=== PATIENT | female | born 1940 | race Caucasian/White ===

== ENCOUNTER 2019-03-14 16:17 | Outpatient (REF) | payer OTHER, SELFPAY ==
--- NOTE | 2019-03-14 13:55 | SKI_PTH ---
PATIENT: Nikki Church LOC: [facility] U#:[id number] AGE/SX: 78/F ROOM: RE03/14/[address]: Fredrick Rae DO : 1940 BED: DIS: 03/14/2019 SPEC #: [id number] RECD: 03/14/19 18:13 STATUS: MEGHNA REQ #: [id number] GERRI: 03/14/19 13:[address]: Fredrick Rae DEPT: Surgical Specimen RECD BY: Cynthia Cowan ENTERED: 03/14/19 18:14 SP TYPE: SKI OTHR DR: Megan Beach Tissues: 1 - SKIN BIOPSY(SHAVE/PUNCH) Procedures: SKIN LEVEL 4 Comments: [id number]
== END 2019-03-14 16:37 ==
LOC: LBN 16:17
PROVIDERS: PCP Internal Medicine; Visit Provider Otolaryngology Otolaryngology/Facial Plastic Surgery
DX: L82.1 Other seborrheic keratosis (principal)
CPT/HCPCS: 88305

== ENCOUNTER 2020-02-29 04:42 | Outpatient (CLI) | payer OTHER, SELFPAY ==
[2020-02-29 19:05] LABS: Bilirubin Negative (Negative); Blood Trace-intact (Negative); Clarity Cloudy (Clear); Glucose Negative (Negative); Ketones Negative (Negative); Leukocyte Esterase Moderate (Negative); Nitrite Negative (Negative); Specific Gravity >= 1.030 (1.005-1.025); Urobilinogen 0.2 EU/dL (Up TO 0.2); pH 5.5 (5-8)
[2020-02-29 19:16] LABS: Epithelial Cells Few HPF (Negative); WBC >50 HPF (0-5)
[2020-02-29 19:17] LABS: Bacteria Few HPF (Negative); C & S Indicated? C&S Done As Ordered; Crystals Negative HPF (Negative); Mucus Negative (Negative); Other Cells Mod Transitional (Negative)
== END 2020-02-29 05:02 ==
PROVIDERS: PCP Physician Assistant Medical; Visit Provider Naturopath
DX: R30.0 Dysuria (principal)
CPT/HCPCS: 87077; 81003; 81015; 87086; 87186

== ENCOUNTER 2022-05-02 11:29 | Outpatient (REF) | payer OTHER, SELFPAY ==
[2022-05-02 17:27] LABS: Hemoglobin A1C 5.7 % (<5.7)
[2022-05-02 17:47] LABS: ALT 18 U/L (14-59); AST 14 U/L (15-37); Albumin 3.5 g/dL (3.4-5.0); Alkaline Phosphatase 70 U/L (46-116); Anion Gap 2.2 mmol/L (3-11); BUN 20 mg/dL (7-18); Bilirubin, Total 0.7 mg/dL (0.2-1.0); CO2 33.8 mmol/L (21.0-32.0); CREATININE 0.8 mg/dL (0.55-1.02); Calcium 9.3 mg/dL (8.5-10.1); Calculated LDL 148 mg/dL (<100); Chloride 105 mmol/L (98-107); Cholesterol 250 mg/dL (<200); Estimated GFR 73.06 (mL/min/1.73m2); Glucose 86 mg/dL (74-106); HDL Cholesterol 90 mg/dL (40-60); Sodium 141 mmol/L (136-145); Total Protein 7.3 g/dL (6.4-8.2); Triglyceride 64 mg/dL (<150)
[2022-05-02 18:58] LABS: Vitamin D 25 Total 39.7 ng/mL (30-100)
== END 2022-05-02 11:30 | disposition home or self-care (01) ==
LOC: NCHCN 11:29
PROVIDERS: PCP Physician Assistant Medical; Visit Provider Physician Assistant Medical
DX: R79.89 Other specified abnormal findings of blood chemistry (principal); E55.9 Vitamin D deficiency, unspecified; R32 Unspecified urinary incontinence
CPT/HCPCS: 80053; 80061; 82306; 83036

== ENCOUNTER → 2023-03-18 02:25 | Outpatient (CLI) | payer OTHER, SELFPAY ==
--- NOTE | 2023-03-18 08:10 | DI.RAD_ITS ---
Exam(s) XR CHEST 2V PA LATERAL EXAM: XR CHEST 2V PA LATERAL CLINICAL HISTORY: COVID 19 U07.1 TECHNIQUE: 2D digital imaging was performed of the chest. Two images were obtained. PA and lateral views were obtained. COMPARISON: CR CHEST 2 VIEWS PA,LAT from 12/09/2014 FINDINGS: MEDIASTINUM: Normal. HEART: Normal. PULMONARY VASCULATURE: Normal. LUNGS: Clear. PLEURAL SPACE: No pleural effusion or pneumothorax. BONE:Within normal limits for the patient's age. OTHER FINDINGS:Normal. IMPRESSION: No acute pulmonary findings. DATA REPOSITORY: RADIATION DOSE DELIVERED:
== END ==
PROVIDERS: PCP Physician Assistant Medical; Visit Provider Physician Assistant Medical
DX: U07.1 COVID-19 (principal)
CPT/HCPCS: 71046

== ENCOUNTER → 2023-07-03 15:47 | Outpatient (CLI) | payer OTHER, SELFPAY ==
--- NOTE | 2023-07-03 15:18 | DI.RAD_ITS ---
Exam(s) XR CHEST 2V PA LATERAL EXAM: XR CHEST 2V PA LATERAL CLINICAL HISTORY: ACUTE BRONCHITIS J20.9 TECHNIQUE: 2D digital imaging was performed of the chest. Two images were obtained. PA and lateral views were obtained. COMPARISON: CR XR CHEST 2V PA LATERAL from 03/18/2023 FINDINGS: MEDIASTINUM: Normal. HEART: Normal. PULMONARY VASCULATURE: Normal. LUNGS: Clear. PLEURAL SPACE: No pleural effusion or pneumothorax. BONE:Within normal limits for the patient's age. OTHER FINDINGS:Normal. IMPRESSION: No acute pulmonary findings. DATA REPOSITORY: RADIATION DOSE DELIVERED:
== END ==
PROVIDERS: PCP Physician Assistant Medical; Visit Provider Physician Assistant Medical
DX: J20.9 Acute bronchitis, unspecified (principal)
CPT/HCPCS: 71046

== ENCOUNTER 2023-07-03 19:27 | Outpatient (REF) | payer OTHER, SELFPAY ==
[2023-07-03 19:53] LABS: Abs Immature Grans 0.04 10^3/uL (0.0-0.06); Absolute Basophil Count 0.07 10^3/uL (0.0-0.2); Absolute Eosinophil Count 0.34 10^3/uL (0.0-0.7); Absolute Lymphocyte Count 1.54 10^3/uL (1.2-3.4); Absolute Monocyte Count 0.74 10^3/uL (0.1-0.8); Basophils % 0.6 %; Eosinophils % 3.1 %; HCT 40.1 % (36.0-46.0); HGB 12.9 g/dL (11.2-15.7); Immature Grans % 0.4 %; MCHC 32.2 % (32.0-36.0); MCV 93 fL (80-95); MPV 9.7 fL (8.0-11.0); Monocytes % 6.7 %; Neutrophils % 75.2 %; Platelet Count 327 10^3/uL (130-400); RDW 13.5 % (11.7-14.6); RDW-SD 46.1 fL; WBC 10.98 10^3/uL (4.4-10.8)
[2023-07-03 19:57] LABS: Absolute Neutrophil Count 8.26 10^3/uL (1.2-6.7)
[2023-07-03 20:08] LABS: ALT 25 U/L (14-59); AST 21 U/L (15-37); Albumin 3.5 g/dL (3.4-5.0); Alkaline Phosphatase 79 U/L (46-116); Anion Gap 5.9 mmol/L (3-11); BUN 21 mg/dL (7-18); Bilirubin, Total 0.6 mg/dL (0.2-1.0); CO2 33.1 mmol/L (21.0-32.0); Calcium 8.9 mg/dL (8.5-10.1); Chloride 104 mmol/L (98-107); Estimated GFR 55.55 (mL/min/1.73m2); Glucose 116 mg/dL (74-106); Sodium 143 mmol/L (136-145); Total Protein 7.1 g/dL (6.4-8.2)
== END 2023-07-03 19:28 | disposition home or self-care (01) ==
LOC: NCHCN 19:27
PROVIDERS: PCP Physician Assistant Medical; Visit Provider Physician Assistant Medical
DX: J20.9 Acute bronchitis, unspecified (principal)
CPT/HCPCS: 80053; 85025

== ENCOUNTER → 2023-12-22 14:21 | Outpatient (BNVA) | payer OTHER, SELFPAY | PROVIDERS: PCP Physician Assistant Medical; Referring Provider Physician Assistant Medical; Visit Provider Podiatrist | DX: L60.0 Ingrowing nail (principal); M79.672 Pain in left foot | CPT/HCPCS: 11750 ==

== ENCOUNTER 2024-02-24 14:03 | Outpatient (REF) | payer MEDICARE, SELFPAY ==
[2024-02-24 19:55] LABS: Abs Immature Grans 0.02 10^3/uL (0.0-0.06); Absolute Basophil Count 0.11 10^3/uL (0.0-0.2); Absolute Eosinophil Count 0.18 10^3/uL (0.0-0.7); Absolute Lymphocyte Count 1.84 10^3/uL (1.2-3.4); Absolute Neutrophil Count 6.16 10^3/uL (1.2-6.7); Basophils % 1.2 %; HCT 44.6 % (36.0-46.0); HGB 14.4 g/dL (11.2-15.7); Immature Grans % 0.2 %; Lymphocytes % 20.7 %; MCH 29.8 pg (27.0-33.0); MCHC 32.3 % (32.0-36.0); MCV 92 fL (80-95); MPV 10.3 fL (8.0-11.0); Monocytes % 6.7 %; Neutrophils % 69.2 %; Platelet Count 293 10^3/uL (130-400); RBC 4.84 10^6/uL (3.93-5.22); RDW 13.2 % (11.7-14.6); RDW-SD 45.1 fL; WBC 8.91 10^3/uL (4.4-10.8)
== END 2024-02-24 14:04 | disposition home or self-care (01) ==
LOC: NCHCN 14:03
PROVIDERS: PCP Physician Assistant Medical; Visit Provider Family Medicine
DX: Z01.818 Encounter for other preprocedural examination (principal)
CPT/HCPCS: 85025

== ENCOUNTER 2025-01-23 15:06 | Emergency (ER) | payer MEDICARE, SELFPAY ==
[2025-01-23 15:20] VITALS: BP 156/86; PULSE 83; RESP 16; TEMP 36.7; O2SAT 90
--- NOTE | 2025-01-23 15:30 | DI.RAD_ITS ---
Exam(s) XR CHEST 2V PA LATERAL EXAM: XR CHEST 2V PA LATERAL CLINICAL HISTORY: cough, SOB. TECHNIQUE: 2D digital imaging was performed. COMPARISON: CR XR CHEST 2V PA LATERAL from 07/03/2023 FINDINGS: 2 views: Heart size is upper normal. The mediastinum is not widened. Lungs are clear. No infiltrates nor pleural effusions. IMPRESSION: No acute pulmonary findings. DATA REPOSITORY: RADIATION DOSE DELIVERED:
[2025-01-23 16:12] LABS: HCT 39.5 % (36.0-46.0); HGB 12.7 g/dL (11.2-15.7); MCH 29.6 pg (27.0-33.0); MCHC 32.2 % (32.0-36.0); MCV 92 fL (80-95); MPV 8.8 fL (8.0-11.0); Platelet Count 286 10^3/uL (130-400); RBC 4.29 10^6/uL (3.93-5.22); RDW 12.9 % (11.7-14.6); RDW-SD 43.7 fL; WBC 10.09 10^3/uL (4.4-10.8)
[2025-01-23 16:27] LABS: ALT 12 U/L (10-49); AST 22 U/L (<34); Albumin 4.1 g/dL (3.2-5.0); Alkaline Phosphatase 70 U/L (46-116); Anion Gap 6.7 mmol/L (3-11); BUN 17 mg/dL (9-23); Bilirubin, Total 0.80 mg/dL (0.2-1.2); CO2 32.3 mmol/L (20.0-31.0); Calcium 8.6 mg/dL (8.3-10.6); Chloride 103 mmol/L (98-107); Glucose 108 mg/dL (74-106); Potassium 4.6 mmol/L (3.5-5.1); Sodium 142 mmol/L (136-145); Total Protein 6.6 g/dL (5.7-8.2)
[2025-01-23] MEDS: Acetaminophen 325 MG TAB 650 MG PO (16:30)
[2025-01-23] MEDS: Albuterol/Ipratropium 3 ML UPD VIAL 9 ML UPD (16:30)
[2025-01-23] MEDS: Ibuprofen 400 MG TAB PO (16:30)
[2025-01-23] MEDS: methylPREDNISolone SUCC 125 MG VIAL IVP (16:30)
[2025-01-23 16:39] LABS: Immature Grans % 0.0 %
[2025-01-23 16:40] LABS: Abs Immature Grans 0.00 10^3/uL (0.0-0.06); RBC Morphology Normal
[2025-01-23 17:37] LABS: COVID-19 PCR Negative (Negative); RSV PCR Negative (Negative)
[2025-01-23 18:11] VITALS: PULSE 105; PULSE 92; O2SAT 94; O2SAT 98
--- NOTE | 2025-01-23 18:11 | ED.GENADUL_ITS ---
Discharge Plan Disposition Patient Disposition: Home Condition: Stable Discharge Details Clinical Impression: Bronchitis Primary Care Provider: Hilda Huerta ED Provider: Ramses Murray Home Meds and New Rx's Prescriptions: New azithromycin 250 mg tablet See Rx Instructions .ROUTE .COMPLEX Qty: 6 0RF Rx Instructions: For 250 mg dose pack: take 500 mg today (day 1), then 250 mg for 4 days (days 2-5) albuterol sulfate 2.5 mg /3 mL (0.083 %) solution for nebulization 2.5 mg inhalation Q4H PRNQty: 180 0RF Continued albuterol sulfate 2.5 mg /3 mL (0.083 %) solution for nebulization 2.5 mg inhalation Q4H PRN (Reason: shortness of breath or wheezing) Qty: 180 0RF latanoprost 0.005 % drops 1 drp ophthalmic (eye) QPM brimonidine 0.2 % drops 1 drp ophthalmic (eye) BID Rx Instructions: administer approximately 8 hours apart clotrimazole 1 % cream 1 applic topical BID 10 Days Qty: 45 1RF albuterol sulfate 3 ML solution for nebulization 3 ml UPD Q4H PRN PRN (Reason: SHORTNESS OF BREATH OR COUGH) Qty: 25 1RF Discharge Instructions Instructions: Azithromycin (Systemic), Prednisone, Bronchitis, Adult ED Additional Instructions: You were seen in the emergency department for your upper respiratory infection, you have a productive cough with green sputum which is more suspicious for bacterial bronchitis, are going to treat your asthma exacerbation with short burst of prednisone, pick this up at your pharmacy and start tomorrow, I have also sent antibiotics of azithromycin to your pharmacy, please use your at home asthma treatments and return for any acute worsening respiratory status despite treatment. Stand Alone Forms: Portal Information Referrals: Hilda Huerta PA [Primary Care Provider, Medicine] Discharge Data Discharge Date/Time-TO BE ENTERED AT DEPARTURE: 01/23/25 18:50 HPI General Date/Time Provider Initiated Documentation: 01/23/25 15:32 . HPI Narrative: 84 year-old female presents to ED today by POV/ambulating with a chief complaint of persistent cough coughing up green sputum with some shortness of breath and worsening wheezing in the setting of chronic asthma especially when she has respiratory infection with onset for the past week or so. Quality described as generalized cough, no radiation to chest pain, near syncope, dizziness, nausea or vomiting, changes in appetite, changes in bowel or urinary habits, high fever. Severity is described as moderate. Palliating factors include at home inhalers without much improvement. Provoking factors include nothing specific. Patient not anticoagulated. Related Data Home Medications ?Medication ?Instructions ?Recorded ?Confirmed albuterol sulfate 2.5 mg/3 mL 3 ml UPD Q4H PRN PRN ARMEN RTNESS OF 12/09/14 01/23/25 (0.083 %) solution for nebulization BREATH OR COUGH #2 5 vials albuterol sulfate 2.5 mg/3 mL 2.5 mg (3 mL) inhalation Q4H PRN 02/18/23 01/23/25 (0.083 %) solution for nebulization shortness of breat h or wheezing #180 mL brimonidine 0.2 % eye drops 1 drp ophthalmic (eye) BID 11/12/23 01/23/25 latanoprost 0.005 % eye drops 1 drp ophthalmic (eye) Q PM 11/12/23 01/23/25 clotrimazole 1 % topical cream 1 applic topical BID 10 days #45 12/12/24 01/23/25 grams albuterol sulfate 2.5 mg/3 mL 2.5 mg (3 mL) inhalation Q4H PRN 01/23/25 (0.083 %) solution for nebulization #180 mL azithromycin 250 mg tablet See Rx Instructions PO .COM PLEX #6 01/23/25 tabs Previous Rx's ?Medication ?Instructions ?Recorded albuterol sulfate 2.5 mg/3 mL 3 ml UPD Q4H PRN PRN ARMEN RTNESS OF 12/09/14 (0.083 %) solution for nebulization BREATH OR COUGH #2 5 vials albuterol sulfate 2.5 mg/3 mL 2.5 mg (3 mL) inhalation Q4H PRN 02/18/23 (0.083 %) solution for nebulization shortness of breat h or wheezing #180 mL clotrimazole 1 % topical cream 1 applic topical BID 10 days #45 12/12/24 grams albuterol sulfate 2.5 mg/3 mL 2.5 mg (3 mL) inhalation Q4H PRN 01/23/25 (0.083 %) solution for nebulization #180 mL azithromycin 250 mg tablet See Rx Instructions PO .COM PLEX #6 01/23/25 tabs Allergies Allergy/AdvReac Type Severity Reaction Status Date / Time brimonidine (Brimonidine) Allergy Unknown unknown Verified 01/23/25 15:24 dorzolamide (Dorzolamide) Allergy Unknown Verified 01/23/25 15:24 latex Allergy red and Verified 01/23/25 15:24 itchy skin tetracycline (Tetracycline) Allergy RASH Verified 01/23/25 15:24 General Stated Complaint: RespSymp JUSTINA: 3 Review of Systems All systems reviewed & are unremarkable except as noted in HPI and below Exam Narrative Exam Narrative: GENERAL APPEARANCE: Well-nourished, non-toxic, awake and alert, atraumatic, mild acute distress. SKIN: Warm, pink, dry, intact, without rashes/lesions/ulcerations. HEAD: Normocephalic, atraumatic, normal hair distribution for gender/age. EYES: Normal conjunctiva, no exudates on lids/lashes. ENT: Nares patent, no circumoral cyanosis, no facial swelling NECK: Supple, trachea midline, painless cervical ROM. LUNGS/CHEST: Lungs - mild wheezing diffusely, non-labored respirations, normal A/P diameter, symmetrical expansion, no chest wall deformity HEART (CV/PV): Regular rate and rhythm without murmur, no peripheral edema, no JVD. ABDOMEN: Soft, non-distended, no guarding. MSK: Normal ROM, no swelling/deformity to bilateral UEs or LEs, moving all extremities without weakness, no cyanosis, spine midline without tenderness, normal curvature. NEURO: Mental Status AAOx4 - alert to person, place, time, events No facial droop, no forehead involvement. Motor: No focal weakness - strength 5/5 in bilateral UEs and LEs, proximal and distal, symmetric. Sensory: sensation intact to light touch globally. Gait normal: patient ambulated without ataxia into ED room. PSYCH: euthymic, cooperative, pleasant, appropriate speech Course Vital Signs Vital signs: Vital Signs Temperature 36.7 C 01/23/25 15:20 Pulse 83 01/23/25 15:20 Respiratory Rate 16 01/23/25 15:20 Blood Pressure 156/86 H 01/23/25 15:20 Pulse Oximetry 90 L 01/23/25 15:20 Temperature 36.7 C 01/23/25 15:20 Temperature Source Oral 01/23/25 15:20 Pulse 83 01/23/25 15:20 Respiratory Rate 16 01/23/25 15:20 Respiratory Effort Normal, Non-Labored, Short of Breath 01/23/25 15:22 Respiratory Depth Normal 01/23/25 15:22 Blood Pressure 156/86 H 01/23/25 15:20 Blood Pressure Position Sitting 01/23/25 15:20 Pulse Oximetry 90 L 01/23/25 15:20 Oxygen Delivery Method Room Air 01/23/25 15:20 Oxygen Flow Rate 0 01/23/25 15:20 Lab/Test Results Lab/Test Results: Laboratory Tests Range/Units 01/23/25 01/23/25 16:00 16:35 WBC (4.4-10.8) 10^3/uL 10.09 RBC (3.93-5.22) 10^6/uL 4.29 Hgb (11.2-15.7) g/dL 12.7 Hct (36.0-46.0) % 39.5 MCV (80-95) fL 92 MCH (27.0-33.0) pg 29.6 MCHC (32.0-36.0) % 32.2 RDW (11.7-14.6) % 12.9 Plt Count (130-400) 10^3/uL 286 MPV (8.0-11.0) fL 8.8 Immature Gran % % 0.0 Neutrophils % % 65.0 Lymphocytes % % 24.0 Atypical Lymphs % % 1 Monocytes % % 5.0 Eosinophils % % 5.0 Basophils % % 0.0 Nucleated RBC % (0.0-0.3) % 0.0 Absolute Neutrophils (1.2-6.7) 10^3/uL 6.56 Absolute Lymphocytes (1.2-3.4) 10^3/uL 2.52 Absolute Monocytes (0.1-0.8) 10^3/uL 0.50 Absolute Eosinophils (0.0-0.7) 10^3/uL 0.50 Absolute Basophils (0.0-0.2) 10^3/uL 0.00 RBC Morphology Normal Sodium (136-145) mmol/L 142 Potassium (3.5-5.1) mmol/L 4.6 Chloride (98-107) mmol/L 103 Carbon Dioxide (20.0-31.0) mmol/L 32.3 H Anion Gap (3-11) mmol/L 6.7 BUN (9-23) mg/dL 17 Creatinine (0.55-1.02) mg/dL 0.79 Est GFR (CKD-EPI 2020) (mL/min/1.73m2) 68.92 Glucose (74-106) mg/dL 108 H Calcium (8.3-10.6) mg/dL 8.6 Total Bilirubin (0.2-1.2) mg/dL 0.80 AST (<34) U/L 22 ALT (10-49) U/L 12 Alkaline Phosphatase (46-116) U/L 70 Total Protein (5.7-8.2) g/dL 6.6 Albumin (3.2-5.0) g/dL 4.1 COVID-19 Source Nasopharynx SARS-CoV-2 (PCR) (Negative) Negative Influenza Type A (PCR) (Negative) Negative Influenza Type B (PCR) (Negative) Negative RSV (PCR) (Negative) Negative Medical Decision Making This dictation utilizes [id number] dictation software and may contain unedited grammatical errors. 84 year-old female presents to ED today by POV/ambulating with a chief complaint of persistent cough coughing up green sputum with some shortness of breath and worsening wheezing in the setting of chronic asthma especially when she has respiratory infection with onset for the past week or so. Quality described as generalized cough, no radiation to chest pain, near syncope, dizziness, nausea or vomiting, changes in appetite, changes in bowel or urinary habits, high fever. Severity is described as moderate. Palliating factors include at home inhalers without much improvement. Provoking factors include nothing specific. Patients' medical history: Asthma. Family and social history: Noncontributory. Pertinent exam findings / vital signs include diffuse wheezing, nonlabored respirations, benign abdomen, nontoxic and afebrile. Differential / pathologies of concern include pneumonia, asthma exacerbation, URI, viral syndrome, bacterial bronchitis. Diagnostic studies of: - CBC, CMP, COVID/flu/RSV, x-ray chest. - CBC and CMP are unremarkable - COVID/flu/RSV negative - X-ray chest shows no pneumonia Interventions of: - 9 mL DuoNeb, Tylenol, ibuprofen, 125 mg IV Solu-Medrol. ED Course/Assessment/Plan: 84-year-old female presents with asthma exacerbation in the setting of productive cough producing green sputum over a week, no pneumonia on chest x-ray and labs are benign with negative respiratory PCR swab, reasonable to treat with at home neb treatments, oral steroids, and azithromycin for empiric bacterial bronchitis due to illness duration and negative viral pcr swab, counseled patient on strict return criteria for any acute worsening despite treatment. Findings not consistent with respiratory distress or failure, pneumonia, sepsis. Disposition of bronchitis. Patient verbalized understanding of the plan and return to ED criteria and engaged in shared decision making. Medical Records Medical records reviewed: Yes I reviewed the patient's medical records. Imaging Data Radiologic Study: Attestation: I personally reviewed and interpreted this imaging study as follows: Imaging: X-Ray Radiologist's impression: EXAM: XR CHEST 2V PA LATERAL CLINICAL HISTORY: cough, SOB. TECHNIQUE: 2D digital imaging was performed. COMPARISON: CR XR CHEST 2V PA LATERAL from 07/03/2023 FINDINGS: 2 views: Heart size is upper normal. The mediastinum is not widened. Lungs are clear. No infiltrates nor pleural effusions. IMPRESSION: No acute pulmonary findings. Lab Data Lab results reviewed: Yes I reviewed the patient's lab results. Labs: Laboratory Tests Range/Units 01/23/25 01/23/25 16:00 16:35 WBC (4.4-10.8) 10^3/uL 10.09 RBC (3.93-5.22) 10^6/uL 4.29 Hgb (11.2-15.7) g/dL 12.7 Hct (36.0-46.0) % 39.5 MCV (80-95) fL 92 MCH (27.0-33.0) pg 29.6 MCHC (32.0-36.0) % 32.2 RDW (11.7-14.6) % 12.9 Plt Count (130-400) 10^3/uL 286 MPV (8.0-11.0) fL 8.8 Immature Gran % % 0.0 Neutrophils % % 65.0 Lymphocytes % % 24.0 Atypical Lymphs % % 1 Monocytes % % 5.0 Eosinophils % % 5.0 Basophils % % 0.0 Nucleated RBC % (0.0-0.3) % 0.0 Absolute Neutrophils (1.2-6.7) 10^3/uL 6.56 Absolute Lymphocytes (1.2-3.4) 10^3/uL 2.52 Absolute Monocytes (0.1-0.8) 10^3/uL 0.50 Absolute Eosinophils (0.0-0.7) 10^3/uL 0.50 Absolute Basophils (0.0-0.2) 10^3/uL 0.00 RBC Morphology Normal Sodium (136-145) mmol/L 142 Potassium (3.5-5.1) mmol/L 4.6 Chloride (98-107) mmol/L 103 Carbon Dioxide (20.0-31.0) mmol/L 32.3 H Anion Gap (3-11) mmol/L 6.7 BUN (9-23) mg/dL 17 Creatinine (0.55-1.02) mg/dL 0.79 Est GFR (CKD-EPI 2020) (mL/min/1.73m2) 68.92 Glucose (74-106) mg/dL 108 H Calcium (8.3-10.6) mg/dL 8.6 Total Bilirubin (0.2-1.2) mg/dL 0.80 AST (<34) U/L 22 ALT (10-49) U/L 12 Alkaline Phosphatase (46-116) U/L 70 Total Protein (5.7-8.2) g/dL 6.6 Albumin (3.2-5.0) g/dL 4.1 COVID-19 Source Nasopharynx SARS-CoV-2 (PCR) (Negative) Negative Influenza Type A (PCR) (Negative) Negative Influenza Type B (PCR) (Negative) Negative RSV (PCR) (Negative) Negative PFSH All Active Problems (Updated 01/23/25 @ 18:22 by ERASTO Lozada) Bronchitis (Acute) Pain in left foot (Acute) Ingrown toenail (Acute) Neoplasm of unspecified behavior of bone, soft tissue, and skin (Acute) Social History Smoking/Tobacco Use Status: Never Smoking risk assessment performed?: Yes Drug use: Never Do you feel safe at home: Yes Do you feel safe in your relationship?: Yes
[2025-01-23] MEDS: Albuterol 2.5 MG/3 ML INH SOLN VIAL UPD (18:45)
== END 2025-01-23 18:50 | disposition home or self-care (01) ==
PROVIDERS: Emergency Provider Physician Assistant; PCP Physician Assistant Medical
DX: J20.9 Acute bronchitis, unspecified (principal)
CPT/HCPCS: 99283; 99284; 94640; 96374; 80053; 87637; 71046; 85025; J2919; J7613; J7620